=== PATIENT | female | born 1985 | race Caucasian/White ===

== ENCOUNTER 2021-07-20 16:04 | Emergency (ER) | payer MEDICAID ==
[~2021-07-20 16:04] MED LIST: NO HOME MEDS
== END 2021-07-20 16:29 | disposition left against medical advice (07) ==
LOC: ER 16:05
DX: L08.9 Local infection of the skin and subcutaneous tissue, unspecified (principal); Z53.21 Procedure and treatment not carried out due to patient leaving prior to being seen by health care provider

== ENCOUNTER 2022-05-31 16:42 | Emergency (ER) | payer SELFPAY ==
[~2022-05-31] VITALS: Ht 162.6 cm; Wt 68.2 kg
[2022-05-31 18:43] VITALS: BP 118/67
== END 2022-05-31 20:18 | disposition home or self-care (01) ==
LOC: ER 16:43
DX: Z04.6 Encounter for general psychiatric examination, requested by authority (principal); F15.20 Other stimulant dependence, uncomplicated; F19.10 Other psychoactive substance abuse, uncomplicated; Z88.0 Allergy status to penicillin; Z59.00 Homelessness unspecified
CPT/HCPCS: 99283